=== PATIENT | male | born 1995 | race Caucasian/White ===

== ENCOUNTER 2018-01-10 09:44 | Emergency (ER) | payer OTHER ==
[~2018-01-10] VITALS: Ht 182.9 cm; Wt 88.5 kg
[~2018-01-10 09:44] MED LIST: CRUTCH2 USE; HYDACE5 PO; METPHE5 PO
[2018-01-10] MEDS ORDERED: CYCL10 PO (11:44)
[2018-01-10] MEDS ORDERED: IBUP800 PO (11:44)
== END 2018-01-10 11:58 | disposition home or self-care (01) ==
LOC: ER 09:44
DX: S60.512A Abrasion of left hand, initial encounter (principal); V23.4XXA Motorcycle driver injured in collision with car, pick-up truck or van in traffic accident, initial encounter; F17.200 Nicotine dependence, unspecified, uncomplicated
CPT/HCPCS: 72070; 73030; 73130; 73630; 90714

== ENCOUNTER 2018-02-14 12:35 | Emergency (ER) | payer OTHER ==
[~2018-02-14] VITALS: Ht 172.7 cm; Wt 68.0 kg
[~2018-02-14 12:35] MED LIST changes: +CYCL10 PO; +IBUP800 PO
== END 2018-02-14 13:05 | disposition home or self-care (01) ==
LOC: ER 12:35
DX: L23.7 Allergic contact dermatitis due to plants, except food (principal); F17.200 Nicotine dependence, unspecified, uncomplicated
CPT/HCPCS: 96372; 99283; J3301

== ENCOUNTER 2020-10-29 21:32 | Emergency (ER) | payer OTHER ==
[~2020-10-29] VITALS: Ht 182.9 cm; Wt 81.7 kg
== END 2020-10-29 23:40 | disposition home or self-care (01) ==
LOC: ER 21:32
DX: S50.01XA Contusion of right elbow, initial encounter (principal); F17.200 Nicotine dependence, unspecified, uncomplicated; V19.9XXA Pedal cyclist (driver) (passenger) injured in unspecified traffic accident, initial encounter; Y93.55 Activity, bike riding
CPT/HCPCS: 73080; 99283-25; A9270

== ENCOUNTER 2021-05-07 19:22 | Emergency (ER) | payer OTHER ==
[~2021-05-07] VITALS: Ht 182.9 cm; Wt 77.1 kg
[2021-05-07] MEDS ORDERED: FAMO20 PO (20:41)
[2021-05-07] MEDS ORDERED: EPIPEN 2-P0.3 MG/0.1 INJ (20:41)
[2021-05-07] MEDS ORDERED: Banophen25 MG PO (20:41)
[2021-05-07] MEDS ORDERED: PRED20 PO (20:41)
== END 2021-05-07 21:47 | disposition home or self-care (01) ==
LOC: ER 19:22
DX: T63.441A Toxic effect of venom of bees, accidental (unintentional), initial encounter (principal); T78.3XXA Angioneurotic edema, initial encounter; F17.200 Nicotine dependence, unspecified, uncomplicated; Z91.038 Other insect allergy status
CPT/HCPCS: 36415; 96372-59; 96374; 96375; 99283-25; J0171; J2930